=== PATIENT | female | born 1975 | race African-American/Black ===

== ENCOUNTER 2022-01-31 00:10 | Emergency (ER) | payer BC, MEDICAID ==
[~2022-01-31] VITALS: Ht 167.6 cm; Wt 148.0 kg
[~2022-01-31 00:10] MED LIST: PREN-129 OR
[2022-01-31 03:27] VITALS: BP 106/55
[2022-01-31] MEDS ORDERED: KETOROLAC TROMETH 60MG/2ML VIAL IM ONE (03:45)
[2022-01-31 04:17] LABS: Urine Bacteria MANY /hpf (None Seen); Urine Blood 1+ /uL (Negative); Urine Mucus FEW (None Seen); Urine Specific Gravity 1.015 (1.001-1.035); Urine WBC 13 /hpf (0 - 5)
[2022-01-31] MEDS ORDERED: CEPH-509 PO (05:08)
[2022-01-31] MEDS ORDERED: IBUP600T28 PO (05:08)
== END 2022-01-31 06:41 | disposition home or self-care (01) ==
LOC: ER 00:10 → EEVIPCON 00:10 → ER 06:40
DX: N39.0 Urinary tract infection, site not specified (principal); M54.9 Dorsalgia, unspecified
CPT/HCPCS: 72100; 81001; 96372; 99284; J1885